=== PATIENT | female | born 1975 | race Caucasian/White ===

== ENCOUNTER 2016-03-31 01:29 | Emergency (ER) | payer BC ==
[~2016-03-31] VITALS: Ht 162.6 cm; Wt 99.8 kg
[2016-03-31 01:40] VITALS: BP 118/58
[2016-03-31] MEDS ORDERED: SERTRALINE HCL50 MG ORAL (01:40)
[2016-03-31] MEDS ORDERED: SYNTHROID100 MCG ORAL (01:40)
--- NOTE | 2016-03-31 01:48 | Emergency Room Report ---
History of Present Illness General Chief Complaint: Syncope Source: Patient, EMS Present Illness HPI Is a 40-year-old female with no significant past medical history. She presents with chief complaint of syncope. She woke up complaining abdominal pain and "gas pain". She now may take Gas-X for it. She took omeprazole tonight. She call her because she did not feel well. He said that she was little sweaty and had a syncopal episode. He caught her and lay on the couch. She did went to the bathroom and had a bowel movement. She had a syncopal episode on the toilet. No injury. [place] better now. No significant change other day and starting a diet a week ago. She lost 8 pounds. Denies any alcohol or drugs. Denies any nausea vomiting. Allergies: Coded Allergies: No Known Allergies (Unverified , 03/31/16) Patient History Past Medical History: see triage record, old chart reviewed Past Surgical History: other Pertinent Family History: none Social History: Denies: smoking Last Menstrual Period: Mar Now: No Immunizations: other Reviewed Nursing Documentation: PMH: Agreed, PSxH: Agreed Nursing Documentation-PMH History Of Psychiatric Problem: Yes - anxiety Review of Systems Eye: Denies: blurred vision, eye pain ENT: Denies: ear pain, nose congestion, throat swelling Respiratory: Denies: cough, shortness of breath Cardiovascular: Reports: syncope, Denies: chest pain, palpitations Gastrointestinal: Denies: abdominal pain, diarrhea, nausea, vomiting Musculoskeletal: Denies: back pain, joint pain Skin: Denies: rash Neurological: Denies: headache, numbness Endocrine: Denies: increased thirst, increased urine Hematologic/Lymphatic: Denies: easy bruising All Other Systems: negative except mentioned in HPI Physical Exam Vital Signs Date Time Temp Pulse Resp B/P Pulse Ox O2 Delivery O2 Flow Rate FiO2 03/31/16 01:35 97.9 88 18 99/61 97 Room Air vitals normal Sp02 EP Interpretation: reviewed, normal General Appearance: well appearing, no apparent distress, alert Head: normocephalic, atraumatic Eyes: bilateral eye EOMI, bilateral eye PERRL ENT: hearing grossly normal, normal pharynx Neck: full range of motion, supple, no meningismus Respiratory: chest non-tender, lungs clear, normal breath sounds Cardiovascular #1: regular rate, rhythm, no murmur Gastrointestinal: normal bowel sounds, non tender, no mass, no organomegaly, no bruit, non-distended Musculoskeletal: back normal, gait/station normal, normal range of motion Psychiatric: mood/affect normal Skin: warm/dry Medical Decision Making Diagnostic Impression: Primary Impression: Syncope Qualified Codes: R55 - Syncope and collapse Additional Impression: Acute hyperglycemia ER Course Patient presents with syncope. This may be secondary to vasovagal and dehydration. She does have ketones in her urine. She did start a new diet regimen the last week and lost 8 pounds her ready. This may be all fluid loss. She felt better now. No evidence of ACS, PE, dissection. No other risk factor for PE. She does have hyperglycemia but no glucose in the urine. She may be prediabetic. Will need followup. I stressed this to patient and her . Lab Results Impression labs unremarkable except for BUN and glucose EKG Diagnostic Results Rate: normal Rhythm: NSR ST Segments: no acute changes Rhythm Strip Diag. Results EP Interpretation: yes Rate: 88 Rhythm: NSR, no PVC's, no ectopy Chest X-Ray Diagnostic Results EP Interpretation: Yes Findings: no consolidation, no effusion, no pneumothorax, no acute cardiopulmonary disease Number of Views: 1 Last Vital Signs Date Time Temp Pulse Resp B/P Pulse Ox O2 Delivery O2 Flow Rate FiO2 03/31/16 01:35 97.9 88 18 99/61 97 Room Air Status: improved Disposition: HOME, SELF-CARE Condition: Stable Patient Instructions: Syncope Additional Instructions: Increase fluids. Followup with your Dr. within a week. Your blood sugar is slightly elevated. Will need recheck for possible diabetes. Return if worse. EUGENIA DE LA CRUZ M.D. Mar 31, 2016 01:48
[2016-03-31 02:13] LABS: BASOPHILS % (AUTO) 0.5 % (0.0-2.0); EOSINOPHILS % (AUTO) 0.6 % (0.0-3.0); LYMPHOCYTES % (AUTO) 37.6 % (20.0-45.0); MEAN CORPUSCULAR HEMOGLOBIN 29.7 PG (27.0-31.0); MEAN CORPUSCULAR HGB CONC 31.9 G/DL (32.0-36.0); MEAN CORPUSCULAR VOLUME 93 FL (80-99); MEAN PLATELET VOLUME 8.5 FL (6.5-10.1); MONOCYTES % (AUTO) 1.5 % (1.0-10.0); NEUTROPHILS % (AUTO) 59.8 % (45.0-75.0); PLATELET COUNT 307 K/UL (150-450); RED BLOOD COUNT 5.11 M/UL (4.20-5.40); RED CELL DISTRIBUTION WIDTH 12.7 % (11.6-14.8); WHITE BLOOD COUNT 12.4 K/UL (4.8-10.8)
[2016-03-31 02:20] LABS: APPEARANCE,URINE CLEAR; KETONES,URINE 3+ (NEGATIVE); LEUKOCYTE ESTERASE ,URINE NEGATIVE (NEGATIVE); NITRITE,URINE NEGATIVE (NEGATIVE); PH,URINE 6.5 (4.5-8.0); PROTEIN,URINE 2+ (NEGATIVE); UROBILINOGEN,URINE NORMAL MG/DL (0.0-1.0)
[2016-03-31 02:24] LABS: ALBUMIN/GLOBULIN RATIO 1.2 (1.0-2.7); CALCIUM 9.6 mg/dL (8.6-10.2); CREATININE 1.1 mg/dL (0.5-0.9); GLOMERULAR FILTRATION RATE 55.6 mL/min (>60); POTASSIUM 3.3 mEQ/L (3.4-4.9); TOTAL PROTEIN 8.5 g/dL (6.6-8.7)
[2016-03-31 02:25] LABS: TROPONIN I < 0.30 ng/mL (<=0.30)
[2016-03-31 02:28] LABS: BACTERIA,URINE FEW /HPF; RBC,URINE 0-2 /HPF (0 - 2); SQUAMOUS EPITHELIAL CELL,UR FEW /LPF (NONE/OCC); WBC,URINE 0-2 /HPF (0 - 2)
[2016-03-31 02:35] LABS: CKMB 2.8 ng/mL (< 3.8)
[2016-03-31] MEDS ORDERED: Acetaminophen 500mg (ES) tab ORAL ONE (03:45)
[2016-03-31 04:04] VITALS: BP 111/70
[2016-03-31 04:05] VITALS: BP 118/58
--- NOTE | 2016-03-31 11:34 | Diagnostic Imaging Report ---
Indication: Chest Pain Comparison: None A single view chest radiograph was obtained. Findings: Cardiomediastinal appearance is within normal limits for age. Pulmonary vascularity is appropriate. The diaphragmatic contour is smooth and costophrenic angles are sharp. No pleural effusions are identified. The bones are unremarkable. Impression: No acute findings
--- NOTE | 2016-05-07 03:13 | Cardiology Report ---
APPROVED REPORT EKG Measurement Heart [id number] Normal sinus rhythm Prolonged QT Abnormal ECG
== END 2016-03-31 04:05 | disposition home or self-care (01) ==
LOC: EDBD 01:29 → EMR 02:20
DX: R55 Syncope and collapse (principal); R73.9 Hyperglycemia, unspecified
CPT/HCPCS: 36415; 71010; 80053; 80300; 81003; 81025; 82550; 82553; 84484; 85025; 93005; 96360